=== PATIENT | male | born 1960 | race Caucasian/White ===

== ENCOUNTER 2017-02-26 10:58 | Emergency (ER) | payer OTHER ==
--- NOTE | 2017-02-26 13:57 | DIAGNOSTIC IMAGING REPORT ---
PROCEDURE: XR RIBS UNILAT W/PA CHEST-LT INDICATION: Left chest pain after fall. TECHNIQUE: Two views of the left ribs with single PA view chest. COMPARISON: None. FINDINGS: LEFT RIBS: Small metal markers placed over the left lower ribs (region of clinical symptoms). There are old fractures of the left posterior lateral sixth, seventh, and eighth ribs. There is no evidence of acute fracture. CHEST: Lungs are clear. Heart and mediastinum are normal. Thorax is normal. IMPRESSION: 1. There are old fractures of the left posterior lateral sixth, seventh, eighth ribs. 2. No evidence of acute fracture. 3. Negative chest.
--- NOTE | 2017-02-26 14:22 | ED ORDER SUMMARY ---
..... Patient: RONY SWEENEY OrderSheet [facility] VisitID: [id number] [address] [place] [address] 57y, M Registration Date/Time: 02/26/2017 ORDER SHEET Weight: 83.9 kg (stated) Allergies: No Known Drug Allergy GENERAL ORDERS: Ribs Unilat w PA Chest Left Urgent (12:23 02/26/2017 DONALDivenmasoud A.R.N.P.) (Ack 12:32 LNations ER Tech1) (15:14 Antonia Wakefield.Michael) MEDICATION ORDERS: IV FLUIDS: ORDER SHEET NOTES: [Electronically signed by Amparo Olguin.R.N.P. (15:10 02/26/2017)] [Electronically signed by Arminda Cortez R.N. (15:14 02/26/2017)] [Electronically locked/signed by Arminda Cortez R.N. (15:14 02/26/2017)]
--- NOTE | 2017-02-26 14:22 | ED ORDER SUMMARY ---
..... Patient: RONY SWEENEY OrderSheet [facility] VisitID: [id number] [address] [place] [address] 57y, M Registration Date/Time: 02/26/2017 ORDER SHEET Weight: 83.9 kg (stated) Allergies: No Known Drug Allergy GENERAL ORDERS: Ribs Unilat w PA Chest Left Urgent (12:23 02/26/2017 DONALDivenmasoud A.R.N.P.) (Ack 12:32 LNations ER Tech1) (15:14 Antonia Wakefield.Michael) MEDICATION ORDERS: IV FLUIDS: ORDER SHEET NOTES: [Electronically signed by Amparo Olguin.R.N.P. (15:10 02/26/2017)] [Electronically signed by Arminda Cortez R.N. (15:14 02/26/2017)] [Electronically locked/signed by Arminda Cortez R.N. (15:14 02/26/2017)]
--- NOTE | 2017-02-26 14:22 | ED NURSING NOTES ---
Clinical Report - Nurses [facility] [address] [place] [address] 02/26/2017 10:59 [id number] Triage time 11:Feb 26 2017. Acuity: LEVEL 4. Chief Complaint: BACK PAIN. Alert. No acute distress. DA COMA SCORE: [place] Coma Scale: 15- eyes open spontaneously (4); best verbal response- oriented x 4 (5); best motor response- obeys commands (6). --11:14 Arminda Cortez R.N. 11:08 02/26/17. BP: 142/81. HR: 103. RR: 18. O2 saturation: 98%. Temp: 97.9 F. Pain level now 5/10. --11:14 Arminda Cortez R.N. Weight: 83.9 kg stated. Height/Length: 70 inches Per Patient. BMI: 26.5. --11:08 Arminda Cortez R.N. Medications None. --11:12 Arminda Cortez R.N. Medication/allergy information source: the patient. --11:14 Arminda Cortez R.N. Allergies No Known Drug Allergy. --11:12 Arminda Cortez R.N. History Arrived by private vehicle. Historian: patient. Accompanied by family. Primary physician (no doc). ( "Was sitting on a chair yesterday while paying bills and the chair gave out, tipped back up against the door jam, caught himself, seemed to be ok. Went dancing last night again, seemed to be ok. Today woke up and got out of bed and heard a terrible noise in my middle back, left side after I stretched". Pain is 5/10. 3 Advil on board. 0800.). This started yesterday. He has had trouble walking. No history of recent trauma. Occurred at home. 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 PAST MEDICAL HX: Immunizations: seasonal influenza. SOCIAL HX: Former smoker (vape). Occasional alcohol use. No drug use. No infectious disease exposure. FALL RISK ASSESSMENT: Fall risk assessment completed. No fall risk identified. NUTRITIONAL RISK ASSESSMENT: The nutritional risk assessment revealed no deficiencies. FUNCTIONAL ASSESSMENT: Functional assessment: no impairments noted. LEARNING NEEDS ASSESSMENT: The learning needs assessment revealed no barriers. SKIN INTEGRITY ASSESSMENT: Skin integrity risk assessment completed. No skin integrity risk identified. --11:14 Arminda Cortez R.N. PROBLEMS: Fractured Phalanx (Toe). --11:12 Arminda Cortez R.N. ADDITIONAL SURGERIES: Tonsillectomy. Vasectomy. --11:12 Arminda Cortez R.N. Interventions ID band on patient. To room. --11:14 Arminda Cortez R.N. PHYSICAL ASSESSMENT Ambulatory to room. GENERAL / NEURO / PSYCH: Oriented X 4. Appears in no acute distress. RESPIRATORY: Respirations not labored. Breath sounds within normal limits. CVS: Capillary refill less than 2 seconds. EXTREMITIES: Limited ROM present. ( hunched over when walking, can't stand at straight up). --11:17 Arminda Cortez R.N. NURSING PROGRESS NOTES Patient ready for evaluation- ED physician notified. --11:18 Arminda Cortez R.N. late entry - 13:30 14:Feb 26 2017. Patient waiting for radiology results. --14:21 Arminda Cortez R.N. Patient waiting for disposition. --14:21 Arminda Cortez R.N. ( QUARANTINE INSPECTOR at bedside. Pt updated on plan of care. Plan for discharge.). --14:22 Arminda Cortez R.N. DISPOSITION / DISCHARGE Departure time: 14:23 Feb 26 2017. Condition at departure: unchanged and stable. No learning barriers present. Patient verbalized understanding. Written instructions provided in Nigerien. The patient was discharged by the nurse practitioner. He was discharged home and accompanied by spouse. He left the Emergency Department ambulatory and via private vehicle. Spouse driving. FALL RISK ASSESSMENT: Fall risk assessment completed. No fall risk identified. --14:34 Arminda Cortez R.N. 14:22 02/26/17. BP: 134/78. HR: 80. RR: 16. O2 saturation: 99%. Pain level now 03/22. --14:34 Arminda Cortez R.N. Locked/Released at 02/26/2017 15:14 by Arminda Cortez R.N.
--- NOTE | 2017-02-26 14:22 | ED CLINICAL REPORT ---
Clinical Report - Physicians/Mid Levels [facility] [address] [place] [address] 02/26/2017 10:59 Patient: RONY SWEENEY Time Seen: 12:15; initial patient contact, initial documentation, patient care assumed. Arrived- By private vehicle. Historian- patient and spouse. HISTORY OF PRESENT ILLNESS Chief Complaint: BACK PAIN. It is described as being moderate in degree and in the area of the left lower ribs. The quality is noted to be "pain". Onset was yesterday and it is still present. Additional history - ( "Was sitting on a chair yesterday while paying bills and the chair gave out, tipped back up against the door jam, caught himself, seemed to be ok. Went dancing last night again, seemed to be ok. Today woke up and got out of bed and heard a terrible noise in my middle back, left side after I stretched". Pain is 5/10. 3 Advil on board. 0800.). Patient notes the possibility of an injury but denies injury to the head or neck. Similar symptoms previously: None. Recent medical care: Not recently seen/assessed. REVIEW OF SYSTEMS No fever, difficulty with urination, urinary frequency, hematuria or cough. No difficulty breathing, chest pain or abdominal pain. All systems otherwise negative, except as recorded above. PAST HISTORY See nurses notes. PROBLEMS: Fractured Phalanx (Toe). --11:12 Arminda Cortez R.N. ADDITIONAL SURGERIES: Tonsillectomy. Vasectomy. --11:12 Arminda Cortez R.N. SOCIAL HISTORY Smoker- current status unknown (electronic cigarrette). Occasional alcohol use. No drug use. No recent travel. Is a local resident. FAMILY HISTORY Negative. ADDITIONAL NOTES The nursing notes have been reviewed with agreement regarding the chief complaint, HPI, ROS, PMH and patient medications and allergies. PHYSICAL EXAM Vital Signs: 02/26/2017 11:08 BP: 142/81. HR: 103. RR: 18. O2 saturation: 98%. Temp: 97.9 F. Have been reviewed as abnormal and appear to be correct. Blood pressure normal. Tachycardic. Respiratory rate normal. Temperature normal. Oxygen saturation normal. Appearance: Alert. No acute distress. Neck: Normal inspection. Neck nontender. Painless ROM. CVS: Heart sounds normal. Pulses normal. Respiratory: No respiratory distress. Breath sounds normal. Abdomen: No visible injury. Soft and nontender. Back: Normal inspection. No tenderness. Painless ROM. Skin: Skin warm and dry. Normal skin color. No rash. Normal skin turgor. Extremities: Extremities exhibit normal ROM. Extremities nontender. Neuro: Oriented X 3. Mood/affect normal. No motor deficit. No sensory deficit. LABS, X-RAYS, AND EKG X-Rays: Rib series. Sternum / Ribs X-rays: (IMPRESSION: 1. There are old fractures of the left posterior lateral sixth, seventh, eighth ribs. 2. No evidence of acute fracture. 3. Negative chest. Electronically Final signed by:Jorge Leggett MD 02/26/2017 1:54:42 PM Technologist: NGUYỄN). The X-rays were interpreted by the radiologist and contemporaneously by me. PROGRESS AND PROCEDURES Course of Care: pt politely declined pain med offer during exam pt aware that the delay is waiting for xray read, ? rib fx. Patient and spouse counseled in person regarding the patient's stable condition, test results and diagnosis. 14:13. Differential Diagnosis: Other possible considerations: pneumo, rib fx, pleurisy, chest wall strain, costalchondritis. Above considerations are based on history, physical exam, reassessment and X-Ray data. Differential diagnosis was discussed with patient and patient's spouse. Disposition: Discharged home in good and unchanged condition (14:22). Condition: good and stable. CLINICAL IMPRESSION Muscle strain of the anterior chest wall. INSTRUCTIONS Warnings: GENERAL WARNINGS: Return or contact your physician immediately if your condition worsens or changes unexpectedly, if not improving as expected, or if other problems arise. SPECIFICALLY, return if you develop incontinence of urine (loss of bladder control). trouble breathing, increased pain. Prescription Medications: Ultram 50 mg tablets: take 1-2 orally every 6 hours as needed for pain. Dispense twenty (20). No refills. Substitution is permissible. Follow-up: Follow up with your doctor in about three days as needed. Call for an appointment. Summary of care provided to patient and family. Understanding of the discharge instructions verbalized by patient. (Electronically signed by Amparo Olguin A.R.N.P. 02/26/2017 15:10)
--- NOTE | 2017-02-26 14:22 | ED NURSING NOTES ---
Clinical Report - Nurses [facility] [address] [place] [address] 02/26/2017 10:59 [facility]: [id number] TRI[facility] Triage time 11:Feb 26 2017. Acuity: LEVEL 4. Chief Complaint: BACK PAIN. Alert. No acute distress. DA COMA SCORE: [place] Coma Scale: 15- eyes open spontaneously (4); best verbal response- oriented x 4 (5); best motor response- obeys commands (6). --11:14 Arminda Cortez R.N. 11:08 02/26/17. BP: 142/81. HR: 103. RR: 18. O2 saturation: 98%. Temp: 97.9 F. Pain level now 5/10. --11:14 Arminda Cortez R.N. Weight: 83.9 kg stated. Height/Length: 70 inches Per Patient. BMI: 26.5. --11:08 Arminda Cortez R.N. Medications None. --11:12 Arminda Cortez R.N. Medication/allergy information source: the patient. --11:14 Arminda Cortez R.N. Allergies No Known Drug Allergy. --11:12 Arminda Cortez R.N. History Arrived by private vehicle. Historian: patient. Accompanied by family. Primary physician (no doc). ( "Was sitting on a chair yesterday while paying bills and the chair gave out, tipped back up against the door jam, caught himself, seemed to be ok. Went dancing last night again, seemed to be ok. Today woke up and got out of bed and heard a terrible noise in my middle back, left side after I stretched". Pain is 5/10. 3 Advil on board. 0800.). This started yesterday. He has had trouble walking. No history of recent trauma. Occurred at home. 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 PAST MEDICAL HX: Immunizations: seasonal influenza. SOCIAL HX: Former smoker (vape). Occasional alcohol use. No drug use. No infectious disease exposure. FALL RISK ASSESSMENT: Fall risk assessment completed. No fall risk identified. NUTRITIONAL RISK ASSESSMENT: The nutritional risk assessment revealed no deficiencies. FUNCTIONAL ASSESSMENT: Functional assessment: no impairments noted. LEARNING NEEDS ASSESSMENT: The learning needs assessment revealed no barriers. SKIN INTEGRITY ASSESSMENT: Skin integrity risk assessment completed. No skin integrity risk identified. --11:14 Arminda Cortez R.N. PROBLEMS: Fractured Phalanx (Toe). --11:12 Arminda Cortez R.N. ADDITIONAL SURGERIES: Tonsillectomy. Vasectomy. --11:12 Arminda Cortez R.N. Interventions ID band on patient. To room. --11:14 Arminda Cortez R.N. PHYSICAL ASSESSMENT Ambulatory to room. GENERAL / NEURO / PSYCH: Oriented X 4. Appears in no acute distress. RESPIRATORY: Respirations not labored. Breath sounds within normal limits. CVS: Capillary refill less than 2 seconds. EXTREMITIES: Limited ROM present. ( hunched over when walking, can't stand at straight up). --11:17 Arminda Cortez R.N. NURSING PROGRESS NOTES Patient ready for evaluation- ED physician notified. --11:18 Arminda Cortez R.N. late entry - 13:30 14:Feb 26 2017. Patient waiting for radiology results. --14:21 Arminda Cortez R.N. Patient waiting for disposition. --14:21 Arminda Cortez R.N. ( PEDIATRIC RADIOLOGIST at bedside. Pt updated on plan of care. Plan for discharge.). --14:22 Arminda Cortez R.N. DISPOSITION / DISCHARGE Departure time: 14:23 Feb 26 2017. Condition at departure: unchanged and stable. No learning barriers present. Patient verbalized understanding. Written instructions provided in [place]. The patient was discharged by the nurse practitioner. He was discharged home and accompanied by spouse. He left the Emergency Department ambulatory and via private vehicle. Spouse driving. FALL RISK ASSESSMENT: Fall risk assessment completed. No fall risk identified. --14:34 Arminda Cortez R.N. 14:22 02/26/17. BP: 134/78. HR: 80. RR: 16. O2 saturation: 99%. Pain level now 03/22. --14:34 Arminda Cortez R.N. Locked/Released at 02/26/2017 15:14 by Arminda Cortez R.N.
--- NOTE | 2017-02-26 15:14 | ED MAR SUMMARY ---
..... Medication Administration Record [facility] [address] [id number] Patient: RONY SWEENEY Visit ID: [id number] 57y, M Weight: 83.9 kg Height/Length: 70 in BMI: 26.5 ALLERGIES: No Known Drug Allergy
--- NOTE | 2017-02-26 15:14 | ED MAR SUMMARY ---
..... Medication Administration Record [facility] [address], [place] [id number] Patient: RONY SWEENEY Visit ID: [id number] 57y, M Weight: 83.9 kg Height/Length: 70 in BMI: 26.5 ALLERGIES: No Known Drug Allergy
--- NOTE | 2017-02-26 15:14 | ED DISCHARGE INSTRUCTIONS ---
Patient: RONY SWEENEY General Instructions [facility] VisitID: [id number] [place] [address] 57y, M Registration Date/Time: 02/26/2017 Muscle strain of the anterior chest wall. INSTRUCTIONS Warnings: GENERAL WARNINGS: Return or contact your physician immediately if your condition worsens or changes unexpectedly, if not improving as expected, or if other problems arise. SPECIFICALLY, return if you develop incontinence of urine (loss of bladder control). trouble breathing, increased pain. Prescription Medications: Ultram 50 mg tablets: take 1-2 orally every 6 hours as needed for pain. Dispense twenty (20). No refills. Substitution is permissible. Follow-up: Follow up with your doctor in about three days as needed. Call for an appointment. Summary of care provided to patient and family. Understanding of the discharge instructions verbalized by patient. ADDITIONAL INFORMATION Chest Strain A strain of the chest is due to stretching and tearing of the muscle fibers between the ribs. This may occur as a result of severe coughing, strenuous lifting or twisting injuries of the upper back. This usually causes increased pain with movement or deep breathing. This may take a few days to a few weeks to heal. Home Care: Rest. Avoid heavy lifting or strenuous exertion. Avoid any activity that causes pain. If you have a severe cough, use a cough syrup such as Robitussin DM (containing dextromethorphan) unless another cough medicine was prescribed. You may use acetaminophen (Tylenol) or ibuprofen (Motrin, Advil) to control pain, unless another medicine was prescribed. [ NOTE: If you have chronic liver or kidney disease or ever had a stomach ulcer or GI bleeding, talk with your doctor before using these medicines.] Follow Up with your doctor as directed. Get Prompt Medical Attention if any of the following occur: A change in the type of pain: if it feels different, becomes more severe, lasts longer, or begins to spread into your shoulder, arm, neck, jaw or back Shortness of breath or increased pain with breathing Cough with dark colored sputum (phlegm) or blood Weakness, dizziness, or fainting Fever of 100.4F (38C) or higher, or as directed by your healthcare provider Tramadol Hydrochloride Oral tablet What is this medicine? TRAMADOL (TRA ma dole) is a pain reliever. It is used to treat moderate to severe pain in adults. How should I use this medicine? Take this medicine by mouth with a full glass of water. Follow the directions on the prescription label. If the medicine upsets your stomach, take it with food or milk. Do not take more medicine than you are told to take. Talk to your neon tube bender regarding the use of this medicine in children. Special care may be needed. What side effects may I notice from receiving this medicine? Side effects that you should report to your doctor or health adult daycare coordinator as soon as possible: allergic reactions like skin rash, itching or hives, swelling of the face, lips, or tongue breathing difficulties, wheezing confusion itching light headedness or fainting spells redness, blistering, peeling or loosening of the skin, including inside the mouth seizures Side effects that usually do not require medical attention (report to your doctor or health adult daycare coordinator if they continue or are bothersome): constipation dizziness drowsiness headache nausea, vomiting What may interact with this medicine? Do not take this medicine with any of the following medications: MAOIs like Carbex, Eldepryl, Marplan, Nardil, and Parnate This medicine may also interact with the following medications: alcohol or medicines that contain alcohol antihistamines benzodiazepines bupropion carbamazepine or oxcarbazepine clozapine cyclobenzaprine digoxin furazolidone linezolid medicines for depression, anxiety, or psychotic disturbances medicines for migraine headache like almotriptan, eletriptan, frovatriptan, naratriptan, rizatriptan, sumatriptan, zolmitriptan medicines for pain like pentazocine, buprenorphine, butorphanol, meperidine, nalbuphine, and propoxyphene medicines for sleep muscle relaxants naltrexone phenobarbital phenothiazines like perphenazine, thioridazine, chlorpromazine, mesoridazine, fluphenazine, prochlorperazine, promazine, and trifluoperazine procarbazine warfarin What if I miss a dose? If you miss a dose, take it as soon as you can. If it is almost time for your next dose, take only that dose. Do not take double or extra doses. Where should I keep my medicine? Keep out of the reach of children. Store at room temperature between 15 and 30 degrees C (59 and 86 degrees F). Keep container tightly closed. Throw away any unused medicine after the expiration date. What should I tell my health care provider before I take this medicine? They need to know if you have any of these conditions: brain tumor depression drug abuse or addiction head injury if you frequently drink alcohol containing drinks kidney disease or trouble passing urine liver disease lung disease, asthma, or breathing problems seizures or epilepsy suicidal thoughts, plans, or attempt; a previous suicide attempt by you or a family member an unusual or allergic reaction to tramadol, codeine, other medicines, foods, dyes, or preservatives or trying to get breast-feeding What should I watch for while using this medicine? Tell your doctor or health adult daycare coordinator if your pain does not go away, if it gets worse, or if you have new or a different type of pain. You may develop tolerance to the medicine. Tolerance means that you will need a higher dose of the medicine for pain relief. Tolerance is normal and is expected if you take this medicine for a long time. Do not suddenly stop taking your medicine because you may develop a severe reaction. Your body becomes used to the medicine. This does NOT mean you are addicted. Addiction is a behavior related to getting and using a drug for a non-medical reason. If you have pain, you have a medical reason to take pain medicine. Your doctor will tell you how much medicine to take. If your doctor wants you to stop the medicine, the dose will be slowly lowered over time to avoid any side effects. You may get drowsy or dizzy. Do not drive, use machinery, or do anything that needs mental alertness until you know how this medicine affects you. Do not stand or sit up quickly, especially if you are an older patient. This reduces the risk of dizzy or fainting spells. Alcohol can increase or decrease the effects of this medicine. Avoid alcoholic drinks. You may have constipation. Try to have a bowel movement at least every 2 to 3 days. If you do not have a bowel movement for 3 days, call your doctor or health adult daycare coordinator. Your mouth may get dry. Chewing sugarless gum or sucking hard candy, and drinking plenty of water may help. Contact your doctor if the problem does not go away or is severe. You have been given the following additional information: Chest Wall Strain Tramadol Hydrochloride Oral tablet (Electronically signed by Amparo Olguin A.R.N.P. 02/26/2017 15:10)
--- NOTE | 2017-02-26 15:14 | ED MED RECONCILIATION SUMMARY ---
Patient: RONY SWEENEY Medication Reconciliation Report [facility] VisitID: [id number] [address] [place] [address] 57y, M Registration Date/Time: 02/26/2017 Weight: 83.9 kg Height/Length: 70 in. BMI: 26.5 ALLERGIES: No Known Drug Allergy The patient's Home Medications are listed below: NONE. The source(s) of the original Home Medication information: patient The following Medications were given to the patient in the Emergency Department: None. The following Medications were prescribed to the patient: Ultram 50 mg tablets: take 1-2 orally every 6 hours as needed for pain. Dispense twenty (20). No refills. Substitution is permissible. -- Amparo Olguin A.R.N.P.
--- NOTE | 2017-02-26 15:14 | ED MED RECONCILIATION SUMMARY ---
Patient: RONY SWEENEY Medication Reconciliation Report [facility] VisitID: [id number] [address] [place] [address] 57y, M Registration Date/Time: 02/26/2017 Weight: 83.9 kg Height/Length: 70 in. BMI: 26.5 ALLERGIES: No Known Drug Allergy The patient's Home Medications are listed below: NONE. The source(s) of the original Home Medication information: patient The following Medications were given to the patient in the Emergency Department: None. The following Medications were prescribed to the patient: Ultram 50 mg tablets: take 1-2 orally every 6 hours as needed for pain. Dispense twenty (20). No refills. Substitution is permissible. -- Amparo Olguin A.R.N.P.
--- NOTE | 2017-02-26 15:14 | ED DISCHARGE INSTRUCTIONS ---
Patient: RONY SWEENEY General Instructions [facility] VisitID: [id number] [place] [address] 57y, M Registration Date/Time: 02/26/2017 Muscle strain of the anterior chest wall. INSTRUCTIONS Warnings: GENERAL WARNINGS: Return or contact your physician immediately if your condition worsens or changes unexpectedly, if not improving as expected, or if other problems arise. SPECIFICALLY, return if you develop incontinence of urine (loss of bladder control). trouble breathing, increased pain. Prescription Medications: Ultram 50 mg tablets: take 1-2 orally every 6 hours as needed for pain. Dispense twenty (20). No refills. Substitution is permissible. Follow-up: Follow up with your doctor in about three days as needed. Call for an appointment. Summary of care provided to patient and family. Understanding of the discharge instructions verbalized by patient. ADDITIONAL INFORMATION Chest Strain A strain of the chest is due to stretching and tearing of the muscle fibers between the ribs. This may occur as a result of severe coughing, strenuous lifting or twisting injuries of the upper back. This usually causes increased pain with movement or deep breathing. This may take a few days to a few weeks to heal. Home Care: Rest. Avoid heavy lifting or strenuous exertion. Avoid any activity that causes pain. If you have a severe cough, use a cough syrup such as Robitussin DM (containing dextromethorphan) unless another cough medicine was prescribed. You may use acetaminophen (Tylenol) or ibuprofen (Motrin, Advil) to control pain, unless another medicine was prescribed. [ NOTE: If you have chronic liver or kidney disease or ever had a stomach ulcer or GI bleeding, talk with your doctor before using these medicines.] Follow Up with your doctor as directed. Get Prompt Medical Attention if any of the following occur: A change in the type of pain: if it feels different, becomes more severe, lasts longer, or begins to spread into your shoulder, arm, neck, jaw or back Shortness of breath or increased pain with breathing Cough with dark colored sputum (phlegm) or blood Weakness, dizziness, or fainting Fever of 100.4F (38C) or higher, or as directed by your healthcare provider Tramadol Hydrochloride Oral tablet What is this medicine? TRAMADOL (TRA ma dole) is a pain reliever. It is used to treat moderate to severe pain in adults. How should I use this medicine? Take this medicine by mouth with a full glass of water. Follow the directions on the prescription label. If the medicine upsets your stomach, take it with food or milk. Do not take more medicine than you are told to take. Talk to your bit setter regarding the use of this medicine in children. Special care may be needed. What side effects may I notice from receiving this medicine? Side effects that you should report to your doctor or health care assistant as soon as possible: allergic reactions like skin rash, itching or hives, swelling of the face, lips, or tongue breathing difficulties, wheezing confusion itching light headedness or fainting spells redness, blistering, peeling or loosening of the skin, including inside the mouth seizures Side effects that usually do not require medical attention (report to your doctor or health care assistant if they continue or are bothersome): constipation dizziness drowsiness headache nausea, vomiting What may interact with this medicine? Do not take this medicine with any of the following medications: MAOIs like Carbex, Eldepryl, Marplan, Nardil, and Parnate This medicine may also interact with the following medications: alcohol or medicines that contain alcohol antihistamines benzodiazepines bupropion carbamazepine or oxcarbazepine clozapine cyclobenzaprine digoxin furazolidone linezolid medicines for depression, anxiety, or psychotic disturbances medicines for migraine headache like almotriptan, eletriptan, frovatriptan, naratriptan, rizatriptan, sumatriptan, zolmitriptan medicines for pain like pentazocine, buprenorphine, butorphanol, meperidine, nalbuphine, and propoxyphene medicines for sleep muscle relaxants naltrexone phenobarbital phenothiazines like perphenazine, thioridazine, chlorpromazine, mesoridazine, fluphenazine, prochlorperazine, promazine, and trifluoperazine procarbazine warfarin What if I miss a dose? If you miss a dose, take it as soon as you can. If it is almost time for your next dose, take only that dose. Do not take double or extra doses. Where should I keep my medicine? Keep out of the reach of children. Store at room temperature between 15 and 30 degrees C (59 and 86 degrees F). Keep container tightly closed. Throw away any unused medicine after the expiration date. What should I tell my health care provider before I take this medicine? They need to know if you have any of these conditions: brain tumor depression drug abuse or addiction head injury if you frequently drink alcohol containing drinks kidney disease or trouble passing urine liver disease lung disease, asthma, or breathing problems seizures or epilepsy suicidal thoughts, plans, or attempt; a previous suicide attempt by you or a family member an unusual or allergic reaction to tramadol, codeine, other medicines, foods, dyes, or preservatives or trying to get breast-feeding What should I watch for while using this medicine? Tell your doctor or health care assistant if your pain does not go away, if it gets worse, or if you have new or a different type of pain. You may develop tolerance to the medicine. Tolerance means that you will need a higher dose of the medicine for pain relief. Tolerance is normal and is expected if you take this medicine for a long time. Do not suddenly stop taking your medicine because you may develop a severe reaction. Your body becomes used to the medicine. This does NOT mean you are addicted. Addiction is a behavior related to getting and using a drug for a non-medical reason. If you have pain, you have a medical reason to take pain medicine. Your doctor will tell you how much medicine to take. If your doctor wants you to stop the medicine, the dose will be slowly lowered over time to avoid any side effects. You may get drowsy or dizzy. Do not drive, use machinery, or do anything that needs mental alertness until you know how this medicine affects you. Do not stand or sit up quickly, especially if you are an older patient. This reduces the risk of dizzy or fainting spells. Alcohol can increase or decrease the effects of this medicine. Avoid alcoholic drinks. You may have constipation. Try to have a bowel movement at least every 2 to 3 days. If you do not have a bowel movement for 3 days, call your doctor or health care assistant. Your mouth may get dry. Chewing sugarless gum or sucking hard candy, and drinking plenty of water may help. Contact your doctor if the problem does not go away or is severe. You have been given the following additional information: Chest Wall Strain Tramadol Hydrochloride Oral tablet (Electronically signed by Amparo Olguin A.R.N.P. 02/26/2017 15:10)
== END 2017-02-26 14:34 | disposition home or self-care (01) ==
LOC: ED SRH 10:58
DX: S29.011A Strain of muscle and tendon of front wall of thorax, initial encounter (principal); X58.XXXA Exposure to other specified factors, initial encounter; Y93.89 Activity, other specified; Y92.89 Other specified places as the place of occurrence of the external cause; Y99.9 Unspecified external cause status; Z87.891 Personal history of nicotine dependence